=== PATIENT | male | born 1985 | race Caucasian/White ===

== ENCOUNTER 2019-08-28 20:46 | Inpatient (IN) | payer OTHER ==
[~2019-08-28] VITALS: Ht 180.3 cm; Wt 72.6 kg
[2019-08-28] MEDS ORDERED: ZIPRASIDONE MESYLATE 20 MG VIAL IM ONE ×2 (21:30)
--- NOTE | 2019-08-28 21:40 | NUR ---
Patient agitated, yelling and attempted to strike hospital secruity gatrentd. Code Higinio called.
[2019-08-28] MEDS ORDERED: LORAZEPAM 2 MG/1 ML VIAL IM ONE (21:45)
[2019-08-28] MEDS ORDERED: LORAZEPAM 2 MG/1 ML VIAL ONE (21:50)
[2019-08-28 22:01] LABS: BASOPHILS # (AUTO) 0.1 K/uL (0.0-8.0); BASOPHILS % (AUTO) 0.8 % (0.0-2.0); EOSINOPHILS # (AUTO) 0.2 K/uL (0.0-0.7); HEMATOCRIT 46.7 % (36.7-47.1); HEMOGLOBIN 16.4 g/dL (12.5-16.3); LYMPHOCYTES # (AUTO) 3.6 K/uL (20.0-40.0); LYMPHOCYTES % (AUTO) 48.3 % (20.5-51.5); MEAN CORPUSCULAR HEMOGLOBIN 33.7 uug (23.8-33.4); MEAN CORPUSCULAR HGB CONC 35 g/dL (32.5-36.3); MEAN CORPUSCULAR VOLUME 96.1 fL (73.0-96.2); MONOCYTES # (AUTO) 0.5 K/uL (2.0-10.0); MONOCYTES % (AUTO) 6.2 % (0.0-11.0); NEUTROPHILS # (AUTO) 3.1 K/uL (1.8-8.9); NEUTROPHILS % (AUTO) 41.7 % (38.5-71.5); PLATELET COUNT (AUTO) 230 K/uL (152-348); RED BLOOD CELL COUNT(AUTO) 4.86 MIL/uL (4.06-5.63); WHITE BLOOD COUNT (AUTO) 7.5 K/uL (3.6-10.2)
[2019-08-28 22:03] LABS: CARBON DIOXIDE 25 mmol/L (21-32); CHLORIDE 105 mmol/L (98-107); GLUCOSE 93 mg/dL (74-106); POTASSIUM 3.8 mmol/L (3.5-5.1); UREA NITROGEN, BLOOD 10 mg/dL (7-18)
[2019-08-28 22:09] LABS: ALANINE AMINOTRANSFERASE 93 U/L (16-63); ALKALINE PHOSPHATASE 72 U/L (50-136); ASPARTATE AMINOTRANSFERASE 43 U/L (15-37); BILIRUBIN,DIRECT 0.1 mg/dL (0.0-0.2); BILIRUBIN,TOTAL 0.3 mg/dL (0.2-1.0); TOTAL PROTEIN, SERUM 7.5 g/dL (6.4-8.2)
[2019-08-28 22:12] LABS: ETHANOL 162 MG/DL (0-0)
--- NOTE | 2019-08-28 22:29 | NUR ---
Medically cleared by DR Treadwell.
--- NOTE | 2019-08-28 22:34 | NUR ---
niles Moura from crisis team. made aware patient is resting. stated that she will come when patient wakes up to decrease risk of agitation. Dr. Treadwell made aware
[2019-08-28 22:36] LABS: ACETAMINOPHEN < 2.0 ug/mL (10-30); CREATINE KINASE, TOTAL 138 U/L (39-308); THYROID STIMULATING HORMONE 2.539 mIU/mL (0.358-3.740)
--- NOTE | 2019-08-28 23:22 | NUR ---
Patient awake,agitated, yelling and screaming. Patient hitting head on gurny. Unable to redirect patient. Dr Treadwell made aware.
[2019-08-28] MEDS ORDERED: KETAMINE HCL 500 MG/10 ML INJ IM ONE (23:30)
--- NOTE | 2019-08-29 00:46 | NUR ---
Patient sleeping with no distress noted.
--- NOTE | 2019-08-29 01:27 | NUR ---
Dr Treadwell speaking with Scottie Tavarez NP building and construction manager for [facility].
[2019-08-29] MEDS ORDERED: IV NS 1000 ML 1,000 ML IV PRN (01:29)
[2019-08-29] MEDS ORDERED: ACETAMINOPHEN 325 MG TABLET PO PRN (01:30)
[2019-08-29] MEDS ORDERED: Z GUARD REMEDY PASTE 57 GM TUBE TOP PRN (01:30)
[2019-08-29] MEDS ORDERED: TEMAZEPAM 15 MG CAPSULE PO PRN (01:30)
[2019-08-29] MEDS ORDERED: ONDANSETRON 4 MG/2 ML VIAL IV PRN (01:30)
--- NOTE | 2019-08-29 02:45 | NUR ---
Patient calm, sleeping removed 4 point restraint.
--- NOTE | 2019-08-29 03:30 | NUR ---
Transfered patient to Tele 3rd floor
--- NOTE | 2019-08-29 03:30 | NUR ---
Patient is in the room, was put on the monitor.
[2019-08-29 05:16] VITALS: BP 104/41
[2019-08-29] MEDS: LORAZEPAM 2 MG/1 ML VIAL IV PRN ×2 (06:18→10:43)
[2019-08-29] MEDS ORDERED: PANTOPRAZOLE SODIUM 40 MG TABLET.DR PO SCH (07:00)
--- NOTE | 2019-08-29 08:00 | NUR ---
AWAKE ALERT AND VERBALLY RESPONSIVE, ANXIOUS AND WANTING TO LEAVE. SEEN BY CRISIS TEAM
[2019-08-29] MEDS ORDERED: THIAMINE HCL 100 MG TABLET PO SCH (09:00)
--- NOTE | 2019-08-29 09:00 | NUR ---
PER CRISIS TEAM PATIENT IS NOT HOLDABLE. WILL FOLLOW-UP WITH HOSPITALIST SEE NOTES
[2019-08-29 10:01] VITALS: BP 124/68
--- NOTE | 2019-08-29 12:00 | NUR ---
SEEN BY DR THOMSON TALKED TO PATIENT ADVISED TO STAY FOR FURTHER OBSERVATION SEE NOTES
--- NOTE | 2019-08-29 12:05 | NUR ---
LEFT AMA WITH OWN MEDICATIONS AND PERSONAL BELONGINGS
--- NOTE | 2019-08-29 12:15 | NUR ---
DR THOMSON AWARE OF PATIENT LEAVING AMA, SEE NOTES
== END 2019-08-29 12:05 | disposition left against medical advice (07) | DRG 52 ==
LOC: ER 20:48 → TELE3 08-29 02:56 → MEDSURG3 08-29 10:30
PROVIDERS: ADMIT Nurse Practitioner Acute Care; ATTEND Student in an Organized Health Care Education/Training Program
DX: G92 Toxic encephalopathy (principal); F13.20 Sedative, hypnotic or anxiolytic dependence, uncomplicated; F25.9 Schizoaffective disorder, unspecified; R41.0 Disorientation, unspecified; R45.850 Homicidal ideations; F43.10 Post-traumatic stress disorder, unspecified; Z91.19 Patient's noncompliance with other medical treatment and regimen; F17.210 Nicotine dependence, cigarettes, uncomplicated; R74.0 Nonspecific elevation of levels of transaminase and lactic acid dehydrogenase [LDH]; T42.4X5A Adverse effect of benzodiazepines, initial encounter; Y92.89 Other specified places as the place of occurrence of the external cause
CPT/HCPCS: 36415; 84443; 85025; 93005; A4663; G0378; G0480; G0480-TC; J2060; J3486; J3490